=== PATIENT | male | born 1955 | race Caucasian/White ===

== ENCOUNTER 2017-03-17 12:46 | Emergency (ER) | payer MEDICAID ==
[2017-03-17 14:03] VITALS: BP 131/83
--- NOTE | 2017-03-17 14:16 | ED ---
Skin Complaint - HPI Summary HPI Summary: Right arm rash. it is very itchy and in the form of a ring. There is no central clearing. It is not painful or tender. Bactroban has not been working. - History of Current Complaint Chief Complaint: UCRash Time Seen by Provider: 03/17/17 13:45 Stated Complaint: LESION ON RIGHT ARM Hx Obtained From: Patient, Family/[employer] Onset/Duration: Started Weeks Ago - 2 weeks. Timing: Constant, Lasting Days Onset Severity: Mild Current Severity: Moderate Skin Location: Discrete, Arm Character: Pruritus, Raised Aggravating Symptom(s): Touch Alleviating Symptom(s): Nothing Associated Signs & Symptoms: Rash - Allergy/Home Medications Allergies/Adverse Reactions: Allergies Allergy/AdvReac Type Severity Reaction Status Date / Time Heparin Allergy Heparin Verified 03/17/17 13:56 Induced Thrombocytopenia Home Medications: Home Medications Aspirin Low Dose CHEW TAB* [Aspirin Low Dose TAB*] 81 mg PO DAILY 03/17/17 [ History Confirmed 03/17/17] Atorvastatin* [Lipitor*] 20 mg PO DAILY 03/17/17 [History Confirmed 03/17/17] Fenofibrate(NF) 130 mg PO DAILY 03/17/17 [History Confirmed 03/17/17] Hydrochlorothiazide TAB* [Hydrodiuril TAB*] 25 mg PO QAM 03/17/17 [History Confirmed 03/17/17] Metoprolol Tartrate TAB* [Lopressor TAB*] 25 mg PO BID 03/17/17 [History Confirmed 03/17/17] Mupirocin 2% OINT* [Bactroban 2 % Oint*] 1 applic TOPICAL TID PRN 03/17/17 [ History Confirmed 03/17/17] Pantoprazole TAB (NF) [Protonix TAB (NF)] 20 mg PO DAILY 03/17/17 [History Confirmed 03/17/17] Tamsulosin CAP* [Flomax CAP*] 0.4 mg PO DAILY 03/17/17 [History Confirmed ] glyBURIDE TAB* [Diabeta TAB*] 10 mg PO 0800,1700 03/17/17 [History Confirmed 01/22] metFORMIN* [Glucophage 1000 MG TAB *] 1,000 mg PO BID 03/17/17 [History Confirmed 03/17/17] PMH/Surg Hx/FS Hx/Imm Hx Previously Healthy: No Endocrine/Hematology History: Reports: Hx Diabetes Cardiovascular History: Reports: Hx Hypertension - Surgical History Surgery Procedure, Year, and Place: Bilateral TKAs Infectious Disease History: No Infectious Disease History: Denies: Traveled Outside the [place] in Last 30 Days - Family History Known Family History: Positive: Other - No related family history to his skin issue. - Social History Occupation: Employed Full-time - He is a gardiner. Lives: With Family Alcohol Use: Occasionally Substance Use Type: Reports: None Smoking Status (MU): Never Smoked Tobacco Review of Systems Constitutional: Negative Negative: Fever Positive: Rash All Other Systems Reviewed And Are Negative: Yes Physical Exam Triage Information Reviewed: Yes Vital Signs On Initial Exam: Initial Vitals Temp Pulse Resp BP Pulse Ox 97.9 F 64 16 131/83 99 03/17/17 13:52 03/17/17 13:52 03/17/17 13:52 03/17/17 13:52 03/17/17 13:52 Vital Signs Reviewed: Yes Appearance: Positive: Well-Appearing, No Pain Distress, Well-Nourished Skin: Positive: Scaly Skin/Lesions, Other - right anterior arm discrete round patch of skin with outer ring of scabs and excoriation and central lichinification with raised skin. NO streaking. Head/Face: Positive: Normal Head/Face Inspection Eyes: Positive: Normal ENT: Positive: Normal ENT inspection Neck: Positive: Supple, Nontender, No Lymphadenopathy Respiratory/Lung Sounds: Negative: Decreased Breath Sounds, Unable to speak in full sentences, Fatigue Cardiovascular: Positive: RRR - pulses intact upper extremeties. Abdomen Description: Positive: Nontender, No Organomegaly, Soft. Negative: Distended, Guarding Musculoskeletal: Positive: Strength/ROM Intact Neurological: Positive: Normal, Sensory/Motor Intact, Alert, Oriented to Person Place, Time, CN Intact II-III Diagnostics - Vital Signs Vital Signs Temp Pulse Resp BP Pulse Ox 03/17/17 13:52 97.9 F 64 16 131/83 99 - Laboratory Lab Statement: Any lab studies that have been ordered have been reviewed, and results considered in the medical decision making process. Course/Dx - Course Course Of Treatment: He will start with steroid ointment as this looks like numular eczyma. There is no central clearing. If not getting better then he will change to the tolnaftate for a few weeks. - Diagnoses Provider Diagnoses: Rash Discharge - Discharge Plan Condition: Good Disposition: HOME Prescriptions: Tolnaftate 1% CREAM* [Tinactin 1% CREAM*] 1 applic TOPICAL TID #1 tube Triamcinolone 0.5% OINT * 1 applic TOPICAL TID #1 tube Patient Education Materials: Acute Rash (ED) Referrals: No Primary Care Phys,NOPCP [Primary Care Provider] -
== END 2017-03-17 14:19 | disposition home or self-care (01) ==
LOC: UCCORT 12:46
DX: R21 Rash and other nonspecific skin eruption (principal); Z11.4 Encounter for screening for human immunodeficiency virus [HIV]; E11.9 Type 2 diabetes mellitus without complications; Z79.84 Long term (current) use of oral hypoglycemic drugs; I10 Essential (primary) hypertension; Z79.82 Long term (current) use of aspirin; Z88.8 Allergy status to other drugs, medicaments and biological substances
CPT/HCPCS: 36415; 86703; 86803; 99212; G0463